=== PATIENT | male | born 1955 | race Two or more races ===

== ENCOUNTER 2017-07-19 05:19 | Emergency (ER) | payer MEDICARE, MEDICAID ==
[~2017-07-19] VITALS: Ht 172.7 cm; Wt 89.4 kg
[2017-07-19 05:32] VITALS: BP 160/99
== END 2017-07-19 06:25 | disposition left against medical advice (07) ==
LOC: ER 05:23
DX: R10.31 Right lower quadrant pain (principal); Z53.21 Procedure and treatment not carried out due to patient leaving prior to being seen by health care provider

== ENCOUNTER 2024-03-31 14:29 | Emergency (ER) | payer MEDICAID, MEDICARE ==
[~2024-03-31] VITALS: Ht 170.2 cm; Wt 84.0 kg
[2024-03-31] MEDS: cefTRIAXone SOD 1,000 MG VL IM ONE (16:30)
[2024-03-31] MEDS: TETANUS-DIPTH-ACEL PERTUSSIS 0.5ML SYR Tdap IM ONE (16:32)
[2024-03-31 16:34] VITALS: BP 132/70; PULSE 65; RESP 16; TEMP 98.4; O2SAT 95
[2024-03-31] MEDS ORDERED: CEPH500C PO (17:13)
[2024-03-31] MEDS ORDERED: ACET-1080 PO (17:13)
== END 2024-03-31 17:54 | disposition home or self-care (01) ==
LOC: ER 14:29
DX: S62.637A Displaced fracture of distal phalanx of left little finger, initial encounter for closed fracture (principal); S61.215A Laceration without foreign body of left ring finger without damage to nail, initial encounter; S61.217A Laceration without foreign body of left little finger without damage to nail, initial encounter; E11.9 Type 2 diabetes mellitus without complications; W45.8XXA Other foreign body or object entering through skin, initial encounter; Y93.89 Activity, other specified; Y92.89 Other specified places as the place of occurrence of the external cause; Y99.8 Other external cause status
CPT/HCPCS: 12004; 73130; 90471; 90715; 96372; 99284; J0696